=== PATIENT | male | born 1985 | race Caucasian/White ===

== ENCOUNTER 2017-01-13 10:27 | Emergency (ER) | payer SELFPAY ==
--- NOTE | 2017-01-13 11:55 | C.PDOC ---
History Of Present Illness 31 year old male is brought to the ED via EMS for evaluation after he was found publicly intoxicated prior to arrival. Patient admits to drinking earlier today and has no physical complaints at this time. Time Seen by Provider: 01/13/17 10:42 Chief Complaint (Nursing): Substance Abuse History Per: Patient, EMS History/Exam Limitations: intoxication Onset/Duration Of Symptoms: Unknown Current Symptoms Are (Timing): Still Present Suicide/Self Injury Attempted (Context): None Modifying Factor(s): Alcohol Involuntary Hold By: None Recent travel outside of the [place]: No Additional History Per: Patient, EMS Past Medical History Reviewed: Historical Data, Nursing Documentation, Vital Signs Vital Signs: Last Vital Signs Temp 98.2 F 01/13/17 17:05 Pulse 81 01/13/17 17:05 Resp 20 01/13/17 17:05 BP 114/74 01/13/17 17:05 Pulse Ox 96 01/13/17 17:05 - Medical History PMH: No Chronic Diseases Surgical History: No Surg Hx Family History: States: Unknown Family Hx - Social History Hx Alcohol Use: Yes Hx Substance Use: No Review Of Systems Psych: Positive for: Other (EtOH intoxication ) Physical Exam - Physical Exam Appears: Non-toxic, No Acute Distress, Other (visibly intoxicated ) Skin: Normal Color, Warm, Dry Head: Atraumatic, Normacephalic Eye(s): bilateral: Normal Inspection Oral Mucosa: Moist, Other (alcohol on breath ) Neck: Supple Chest: Symmetrical, No Deformity, No Tenderness Cardiovascular: Rhythm Regular Respiratory: Normal Breath Sounds, No Accessory Muscle Use Extremity: Normal ROM, Capillary Refill (less than 2 seconds ) Neurological/Psych: Other (arousable to touch and verbal stimuli ) Gait: Unsteady ED Course And Treatment O2 Sat by Pulse Oximetry: 100 (on RA) Pulse Ox Interpretation: Normal Medical Decision Making Medical Decision Making: Patient acutely intoxicated. No signs of trauma. Patient to be observed until sober and safe for discharge 12:00Patient observed to be sleeping soundly in no distress. Arousable to verbal stimuli 14:00 Continue to observe patient, still sleeping. 16:50 Patient is alert awake and oriented. Ambulatory with steady gait Disposition Counseled Patient/Family Regarding: Need For Followup - Disposition Referrals: Alcoholics Anonymous [Outside] Disposition: HOME/ ROUTINE Disposition Time: 16:57 Condition: STABLE Instructions: Alcohol Intoxication (GEN) Forms: [facility] (Bulgarian) - POA Present On Arrival: None - Clinical Impression Clinical Impression: Alcohol intoxication - PA / CLINICAL PROVIDER TRAINER / Resident Statement MD/DO has reviewed & agrees with the documentation as recorded. - Scribe Statement The provider has reviewed the documentation as recorded by the Scribe (Tracey Garcia) All medical record entries made by the Scribe were at my direction and personally dictated by me. I have reviewed the chart and agree that the record accurately reflects my personal performance of the history, physical exam, medical decision making, and the department course for this patient. I have also personally directed, reviewed, and agree with the discharge instructions and disposition.
[2017-01-13 17:06] VITALS: BP 114/74; PULSE 81; RESP 20; TEMP 98.2
[2017-01-13 18:31] VITALS: O2SAT 100
== END 2017-01-13 18:17 | disposition home or self-care (01) ==
LOC: C.ER 10:27
DX: F10.129 Alcohol abuse with intoxication, unspecified (principal); Y90.9 Presence of alcohol in blood, level not specified